=== PATIENT | male | born 1950 | race Caucasian/White ===

== ENCOUNTER 2017-12-06 09:19 | Emergency (ER) | payer MEDICARE, MEDICAID, OTHER ==
[2017-12-06] MEDS: IBUPROFEN 600 MG TAB PO (11:53)
== END 2017-12-06 14:18 | disposition home or self-care (01) ==
LOC: FTE 09:19
DX: S63.612A Unspecified sprain of right middle finger, initial encounter (principal); X58.XXXA Exposure to other specified factors, initial encounter; Y92.9 Unspecified place or not applicable
CPT/HCPCS: 29130; 73130-RT; 99283-25